=== PATIENT | female | born 1940 | race Caucasian/White ===

== ENCOUNTER 2016-11-22 07:33 | Emergency (ER) | payer MEDICARE ==
--- NOTE | 2016-11-22 08:25 | ED ---
Fall HPI - General Chief Complaint: Fall Stated Complaint: Fall Time Seen by Provider: 11/22/16 08:01 Source: patient, RN notes reviewed Mode of arrival: ambulatory - History of Present Illness Initial Comments: 76-year-old female presents to the emergency department with a chief complaint of trip and fall. Patient was walking on stones.she lost her footing and fell forward onto her head. Patient states she felt her forehead and nose. Patient states that she noticed some bleeding from the nose and she has pain to the nose. Patient denies any neck pain. Patient states she is also having pain to the right hand. Patient states that she was concerned due to her symptoms so she thought that she should be evaluated. Patient states that she is not currently having any other symptoms at this time. Patient denies any recent fever, chills, shortness of breath, chest pain, back pain, abdominal pain, nausea vomiting, numbness or tingling, dysuria or hematuria, constipation or diarrhea, headaches or visual changes, or any other current symptoms. - Related Data Home Medications Medication Instructions Recorded Confirmed Cholecalciferol (Vitamin D3) 5,000 units PO DAILY 11/22/16 11/22/16 [Vitamin D3] Thyroid,Pork [Nature-Throid] 65 mg PO BID 11/22/16 11/22/16 Previous Rx's Medication Instructions Recorded Amoxicillin/Potassium Clav 1 tab PO Q12HR #20 tab 11/22/16 [Augmentin 875-125 Tablet] Allergies Allergy/AdvReac Type Severity Reaction Status Date / Time cephalexin [From Keflex] Allergy Rash/Hives Verified 11/22/16 07:44 Review of Systems ROS Statement: Those systems with pertinent positive or pertinent negative responses have been documented in the HPI. ROS Other: All systems not noted in ROS Statement are negative. Past Medical History Past Medical History: Cancer, Osteoarthritis (OA), Thyroid Disorder Additional Past Medical History / Comment(s): Thyroid cancer, colon cancer History of Any Multi-Drug Resistant Organisms: None Reported Past Surgical History: Hysterectomy, Tonsillectomy Additional Past Surgical History / Comment(s): colonoscopy, bowel resection Past Psychological History: No Psychological Hx Reported Smoking Status: Former smoker Past Alcohol Use History: Occasional Past Drug Use History: None Reported General Exam Limitations: no limitations General appearance: alert, in no apparent distress Head exam: Present: other (Patient does appear to have a small laceration to the bridge of the nose.) Eye exam: Present: normal appearance, PERRL, EOMI. Absent: scleral icterus, conjunctival injection, periorbital swelling ENT exam: Present: normal exam, mucous membranes moist Neck exam: Present: normal inspection. Absent: tenderness, meningismus, lymphadenopathy Respiratory exam: Present: normal lung sounds bilaterally. Absent: respiratory distress, wheezes, rales, rhonchi, stridor Cardiovascular Exam: Present: regular rate, normal rhythm, normal heart sounds. Absent: systolic murmur, diastolic murmur, rubs, gallop, clicks Extremities exam: Present: full ROM, normal capillary refill. Absent: normal inspection (Patient appears to have a small abrasion to the right palm of the hand.), tenderness, pedal edema, joint swelling, calf tenderness Back exam: Present: normal inspection Neurological exam: Present: alert, oriented X3, CN II-XII intact. Absent: motor sensory deficit Psychiatric exam: Present: normal affect, normal mood Skin exam: Present: warm, dry, intact, normal color. Absent: rash Course Vital Signs 11/22/16 07:36 Temperature 97.7 F Pulse Rate 115 H Respiratory 20 Rate Blood Pressure 119/74 O2 Sat by Pulse 97 Oximetry Medical Decision Making - Medical Decision Making 76-year-old female presents for a trip and fall. This time patient's imaging is reviewed and she does appear to have a nasal bone fracture. This time we discussed wound care. We discussed follow-up and return parameters. Patient stated that she understood all questions have been answered. This time she will be discharged home. - Radiology Data Radiology results: report reviewed, image reviewed Disposition Clinical Impression: Fall, Nasal contusion, Contusion of right hand Disposition: HOME SELF-CARE Condition: Stable Instructions: Contusion in Adults (ED) Additional Instructions: Please use medication as discussed. Please follow up with family doctor if symptoms have not improved over the next two days. Please return to the emergency room if your symptoms increase or worsen or for any other concerns. Prescriptions: Amoxicillin/Potassium Clav [Augmentin 875-125 Tablet] 1 tab PO Q12HR #20 tab Referrals: Galina Arenas MD [STAFF PHYSICIAN] - 1-2 days Terrence Montalvo MD [STAFF PHYSICIAN] - 1-2 days Time of Disposition: 09:07
--- NOTE | 2016-11-22 09:00 | CT ---
EXAMINATION TYPE: CT facial bones wo con DATE OF EXAM: 11/22/2016 8:27 AM COMPARISON: NONE HISTORY: Fall, open wounds to nose and bridge of nose CT DLP: 1753.6 (brain,cervical and facial) mGycm Automated exposure control for dose reduction was used. TECHNIQUE: CT scan of the sinuses is performed without contrast, axial images are obtained, coronal r eformatted images are also reviewed. FINDINGS: Maxillary spine is intact. Maxillary sinuses are clear. Sphenoid ethmoid and frontal sinuse s are clear. There is a fracture of the nasal bone. Near the base of the nasal bridge subtle fracture appears to b e present with slight step off. Additionally, tiny fracture may be at the bridge of the nose. Left septal deviation is present. Ostiomeatal units are patent. There is a right chinyere bullosa. Mastoid air cells within the [id number] are clear. Zygomatic arches are intact. Orbital floors phuc ear normal. Orbits appear symmetrical. There appears to be some increased density near the bridge of the nose whi ch may be on the skin surface. IMPRESSION: 1. Subtle fracture of the nasal bridge as well as fractures at the base of the nasal bones.
--- NOTE | 2016-11-22 09:03 | CT ---
EXAMINATION TYPE: CT brain yanetine wo con DATE OF EXAM: 11/22/2016 8:27 AM COMPARISON: NONE HISTORY: Fall, open wounds to nose and bridge of nose CT DLP: 1753.6 (brain, cervical and facial) mGycm, Automated exposure control for dose reduction was used. CONTRAST: Patient injected with 0 mL of Omnipaque 300. CT of the brain is performed utilizing 3 mm thick sections through the posterior fossa and 3 mm thick sections through the remaining calvarium. Study is performed within 24 hours of arrival to the hospital. No abnormal hyperdensity is present to suggest an acute intracranial hemorrhage. No mass lesion is evident. No acute infarcts are evident. Ventricles and sulci are appropriate for the patient age. Paranasal sinuses and mastoid air cells within the [id number] are clear. Nasal bone fracture at the base appears to be present. A subtle bridge of the nasal bone fracture may be present as well. IMPRESSIONS: 1. Fractured nasal bone. 2. Normal intracranial CT brain CT cervical spine. COMPARISON: None CT of the cervical spine is performed in the axial plane at 2 mm thick sections. Reconstructed image s in the coronal, and sagittal plane are reviewed on the computer. No acute fractures are evident. Vertebral body alignment is normal. There is mild narrowing of the C5-C6 disc space and to lesser degree C6-7 disc space Remaining disc h eights are preserved. Vertebral body heights are preserved. No spinal canal stenosis is evident. No neural foraminal stenosis is evident. IMPRESSIONS: 1. No acute osseous abnormality cervical spine.
--- NOTE | 2016-11-22 09:05 | XR ---
EXAMINATION TYPE: XR hand complete RT DATE OF EXAM: 11/22/2016 8:28 AM COMPARISON: NONE HISTORY: Pain fall on stones abrasion TECHNIQUE: Three-view right hand FINDINGS: Advanced degenerative joint changes present in the distal index finger. Some degenerative c hanges present to the distal interphalangeal joint spaces. Milder joint space narrowing is present in the proximal interphalangeal joint spaces. No acute fractures are identified. No radiopaque foreign bodies are evident. IMPRESSION: 1. No acute osseous abnormality. 2. Advanced degenerative joint changes distal interphalangeal joint space index finger
[2016-11-22 09:17] VITALS: BP 136/67; PULSE 97; RESP 16; TEMP 97
== END 2016-11-22 09:16 | disposition home or self-care (01) ==
LOC: EC 07:33
DX: S00.33XA Contusion of nose, initial encounter (principal); S60.221A Contusion of right hand, initial encounter; E07.9 Disorder of thyroid, unspecified; Z85.850 Personal history of malignant neoplasm of thyroid; Z85.038 Personal history of other malignant neoplasm of large intestine; Z88.1 Allergy status to other antibiotic agents; Z87.891 Personal history of nicotine dependence; Z79.899 Other long term (current) drug therapy; W01.0XXA Fall on same level from slipping, tripping and stumbling without subsequent striking against object, initial encounter; Y93.01 Activity, walking, marching and hiking
CPT/HCPCS: 70450; 70486; 72125; 99284